=== PATIENT | female | born 1960 | race Caucasian/White ===

== ENCOUNTER → 2018-02-25 | Outpatient (CLI) | payer OTHER ==
[~2018-02-25] MED LIST: CONJ1TAB; COPAXINE; GADAVIST IV PRN
--- NOTE | 2018-02-25 09:17 | DIAGNOSTIC IMAGING REPORT ---
BRAIN COMBO FOR MS CLINICAL HISTORY: 57 years-old Female presenting with MS, follow-up, concern for progression of disease. TECHNIQUE: Multisequence, multiplanar MR imaging of the brain was performed before and after the administration of intravenous contrast. IV contrast: 8 mL of Gadavist. COMPARISON: 04/12/2016. FINDINGS: Ventricles and sulci normal in size. Multiple nonenhancing foci of T2/FLAIR hyperintensity in the subcortical white matter, which do not demonstrate restricted diffusion. These are unchanged in size and number with the exception of one lesion, which may have minimally increased (series 8 image 56), now measuring 6 mm, previously 4 mm. An additional lesion is also noted at the left medulla, unchanged from prior. No mass effect or midline shift. No restricted diffusion to suggest acute ischemia. No hemorrhage. No extra-axial fluid collection. T2 skull base flow voids preserved. No abnormal parenchymal enhancement. Bone marrow signal intensity within the calvarium within normal limits. Polypoid mucosal thickening in the right maxillary sinus. IMPRESSION: 1. Redemonstration of nonspecific T2/FLAIR hyperintense foci in the subcortical white matter and at the left medulla, which are unchanged in size and number with the exception of one lesion, which may have minimally increased in size. These do not demonstrate restricted diffusion or enhancement to suggest active demyelination. Electronically signed by: Enoch Krishnamurthy M.D. 02/25/2018 9:16 AM Dictated Date/Time: 02/25/2018 9:05 AM
== END | disposition home or self-care (01) ==
LOC: C.MRI 07:59
PROVIDERS: ATTEND Psychiatry & Neurology Neurology
DX: G35 Multiple sclerosis (principal)

== ENCOUNTER → 2018-02-27 | Outpatient (CLI) | payer OTHER ==
--- NOTE | 2018-02-27 12:21 | DIAGNOSTIC IMAGING REPORT ---
MRI OF THE CERVICAL SPINE WITH AND WITHOUT CONTRAST CLINICAL HISTORY: Multiple sclerosis. Left hand numbness. COMPARISON: MRI of the cervical spine April 12, 2016. TECHNIQUE: Utilizing a 1.5 Daylin magnet and dedicated coil, multiplanar, multiecho imaging of the cervical spine was performed before and after intravenous administration of 8 of Gadavist. FINDINGS: Alignment of the cervical spine is anatomic. Vertebral body heights are maintained. There is no suspicious marrow replacement. No intracanalicular mass or fluid collection is present. 2 foci of increased T2 signal within the upper to mid cervical cord measuring up to 7 mm are similar to MRI of April 12, 2016. These are located at the C2 and C4 levels. No new foci of signal abnormality are identified within the cervical cord. There is no cord enhancement. Mild multilevel degenerative changes are similar to previous exam. There is minimal central canal narrowing at C6-C7. There is mild multilevel facet arthrosis with mild multilevel neural foraminal stenosis. IMPRESSION: 1. No change in 2 foci of cervical cord demyelination since MRI of April 12, 2016. No new foci identified. No evidence for active demyelination within the cervical cord. 2. Mild multilevel degenerative disc disease and facet arthrosis of the cervical spine. Electronically signed by: Willy Woods M.D. 02/27/2018 12:20 PM Dictated Date/Time: 02/27/2018 12:14 PM
== END | disposition home or self-care (01) ==
LOC: C.MRI 10:42
PROVIDERS: ATTEND Psychiatry & Neurology Neurology
DX: G35 Multiple sclerosis (principal)